=== PATIENT | female | born 1960 | race African-American/Black ===

== ENCOUNTER 2016-09-04 17:44 | Observation (INO) | payer SELFPAY ==
[~2016-09-04] VITALS: Ht 175.3 cm; Wt 95.0 kg
[2016-09-04 17:46] VITALS: BP 141/85; PULSE 88; RESP 20; TEMP 99.1; O2SAT 100
--- NOTE | 2016-09-04 19:22 | PD ---
HPI Chief Complaint: Cardiac Complaint Time Seen by Provider: 19:10 Travel History International Travel<30 days: No Contact w/Intl Traveler<30days: No Traveled to known affect area: No History of Present Illness HPI 56 year old female presents for evaluation of chest pain. She reports that yesterday evening at 11 PM she developed a substernal chest pressure which lasted for 20 minutes. She reports that it felt like a "elephant sitting on the chest." Today she has had intermittent chest discomfort and her daughter urged her to come here for evaluation. She is currently not having any chest pain. She does report that she had some "numbness" in her legs as well as some right arm discomfort when she woke up this morning which resolved. She denies any shortness of breath, nausea or vomiting, cough or congestion, fevers or chills, abdominal pain, calf Swelling. No personal history of coronary artery disease. She does report significant family historyshe reports her mother had an WY in her 30s and her father had an WY in his 40s. She denies any known history of hypertension, hyperlipidemia or IVs but she admits that she has not followed up with a primary care physician in approximately 25 years. She has never had this type of pain before. No other complaints. [facility] Past Medical History Medical History: Denies Significant Hx Tubal Ligation: Yes Social History Alcohol Use: Yes (VERY RARE ) Tobacco Use: No Substance Use: No Allergies-Medications (Allergen,Severity, Reaction): Coded Allergies: No Known Allergies (Unverified , 09/04/16) Reported Meds & Prescriptions Reported Meds & Active Scripts Active No Active Prescriptions or Reported Medications Review of Systems Except as stated in HPI: all other systems reviewed are Neg Physical Exam Narrative GENERAL: Well-developed well-nourished female in no acute distress SKIN: Warm and dry. HEAD: Atraumatic. Normocephalic. EYES: Pupils equal and round. No scleral icterus. No injection or drainage. ENT: No nasal bleeding or discharge. Mucous membranes pink and moist. NECK: Trachea midline. No JVD. CARDIOVASCULAR: Regular rate and rhythm. No murmur appreciated. RESPIRATORY: No accessory muscle use. Clear to auscultation. Breath sounds equal bilaterally. GASTROINTESTINAL: Abdomen soft, non-tender, nondistended. Hepatic and splenic margins not palpable. MUSCULOSKELETAL: No obvious deformities. No clubbing. No cyanosis. No edema. NEUROLOGICAL: Awake and alert. No obvious cranial nerve deficits. Motor grossly within normal limits. Normal speech. PSYCHIATRIC: Appropriate mood and affect; insight and judgment normal. Data Data Last Documented VS Vital Signs Date Time Temp Pulse Resp B/P Pulse Ox O2 Delivery O2 Flow Rate FiO2 09/04/16 19:29 18 99 09/04/16 19:08 76 09/04/16 17:46 99.1 141/85 Room Air Orders Electrocardiogram (09/04/16 19:19) Basic Metabolic Panel (Bmp) (09/04/16 19:19) Ckmb (Isoenzyme) Profile (09/04/16 19:19) Complete Blood Count With Diff (09/04/16 19:19) Magnesium (Mg) (09/04/16 19:19) Prothrombin Time / Inr (Pt) (09/04/16 19:19) Act Partial Throm Time (Ptt) (09/04/16 19:19) Troponin I (09/04/16 19:19) Chest, Single Ap (09/04/16 19:19) Ecg Monitoring (09/04/16 19:19) Bilateral Bp Monitoring (09/04/16 19:19) Iv Access Insert/Monitor (09/04/16 19:19) Oximetry (09/04/16 19:19) Oxygen Administration (09/04/16 19:19) Aspirin Chew (Aspirin Chew) (09/04/16 19:30) Sodium Chloride 0.9% Flush (Ns Flush) (09/04/16 19:30) Potassium Chloride (Kcl) (09/04/16 20:15) CKMB (09/04/16 19:20) CKMB% (09/04/16 19:20) Admit Order (Ed Use Only) (09/04/16 20:23) Labs Laboratory Tests Test 09/04/16 19:20 White Blood Count 5.6 TH/MM3 Red Blood Count 4.03 MIL/MM3 Hemoglobin 10.9 GM/DL Hematocrit 33.8 % Mean Corpuscular Volume 83.9 FL Mean Corpuscular Hemoglobin 27.1 PG Mean Corpuscular Hemoglobin 32.3 % Concent Red Cell Distribution Width 14.9 % Platelet Count 231 TH/MM3 Mean Platelet Volume 9.1 FL Neutrophils (%) (Auto) 52.9 % Lymphocytes (%) (Auto) 38.0 % Monocytes (%) (Auto) 5.7 % Eosinophils (%) (Auto) 2.9 % Basophils (%) (Auto) 0.5 % Neutrophils # (Auto) 2.9 TH/MM3 Lymphocytes # (Auto) 2.1 TH/MM3 Monocytes # (Auto) 0.3 TH/MM3 Eosinophils # (Auto) 0.2 TH/MM3 Basophils # (Auto) 0.0 TH/MM3 CBC Comment DIFF FINAL Differential Comment Prothrombin Time 10.6 SEC Prothromb Time International 1.0 RATIO Ratio Activated Partial 31.4 SEC Thromboplast Time Sodium Level 142 MEQ/L Potassium Level 3.4 MEQ/L Chloride Level 108 MEQ/L Carbon Dioxide Level 29.5 MEQ/L Anion Gap 5 MEQ/L Blood Urea Nitrogen 13 MG/DL Creatinine 0.92 MG/DL Estimat Glomerular Filtration 63 ML/MIN Rate Random Glucose 137 MG/DL Calcium Level 9.1 MG/DL Magnesium Level 1.8 MG/DL Total Creatine Kinase 254 U/L Creatine Kinase MB 3.2 NG/ML Creatine Kinase MB % 1.3 % Troponin I 0.02 NG/ML [facility] Medical Decision Making Medical Screen Exam Complete: Yes Emergency Medical Condition: Yes Medical Record Reviewed: Yes Interpretation(s) EKG reveals flipped T waves in V3 and V4, normal sinus rhythm Differential Diagnosis Angina, acute coronary syndrome, anxiety, pneumothorax, pericarditis, myocarditis, aortic dissection, pulmonary embolus, costochondritis Narrative Course This is a 56-year-old female with family history of coronary artery disease who presents after having 20 episodes of substernal chest pressure yesterday and intermittent chest pressure today. Plan is for 12-lead EKG, ECG monitor with pulse oximetry, basic lab work, chest x-ray. She will be given a full dose aspirin. Laboratory and imaging studies been reviewed. Her potassium is 3.4, she is given oral potassium chloride. Hemoglobin 10.9, total CK is 254 with normal MB percentage and a negative troponin. She does have significant family history of coronary artery disease as well as likely undiagnosed risk factors. Therefore the plan would be to admit the patient and the chest pain center for rule out purposes, serial enzymes. She is agreeable. Diagnosis Primary Impression: Chest pain Qualified Code: R07.9 - Chest pain, unspecified type Admitting Information Admitting Physician Requests: Observation Scripts No Active Prescriptions or Reported Meds Wendi,Iron P. PA Sep 04, 2016 19:21
[2016-09-04 19:29] VITALS: RESP 18; O2SAT 99
[2016-09-04] MEDS ORDERED: ASPIRIN 81 MG CHEW TAB PO ONE (19:30)
[2016-09-04] MEDS ORDERED: SODIUM CHLORIDE 0.9% FLUSH 10 ML FLUSH IVF PRN (19:30)
[2016-09-04 19:42] LABS: AUTOMATED NEUTROPHIL # 2.9 TH/MM3 (1.8-7.7); BASOPHIL % 0.5 % (0.0-2.0); EOSINOPHIL # 0.2 TH/MM3 (0-0.4); EOSINOPHIL % 2.9 % (0.0-4.0); HEMATOCRIT 33.8 % (35.0-46.0); HEMO FLAGS DIFF FINAL; LYMPHOCYTE # 2.1 TH/MM3 (1.0-4.8); MEAN CELL VOLUME 83.9 FL (80.0-100.0); MEAN CORPUSCULAR HEMOGLOBIN 27.1 PG (27.0-34.0); MEAN CORPUSCULAR HGB CONC 32.3 % (32.0-36.0); MONO % 5.7 % (0.0-8.0); NEUT % 52.9 % (16.0-70.0); PLATELET COUNT 231 TH/MM3 (150-450); RED BLOOD COUNT 4.03 MIL/MM3 (4.00-5.30); RED CELL DISTRIBUTION WIDTH 14.9 % (11.6-17.2); WHITE BLOOD COUNT 5.6 TH/MM3 (4.0-11.0)
[2016-09-04 19:53] LABS: APTT (PATIENT) 31.4 SEC (24.3-30.1); PROTHROMBIN TIME - PATIENT 10.6 SEC (9.8-11.6)
[2016-09-04 20:02] LABS: BICARBONATE 29.5 MEQ/L (21.0-32.0); MAGNESIUM 1.8 MG/DL (1.5-2.5); POTASSIUM 3.4 MEQ/L (3.5-5.1)
--- NOTE | 2016-09-04 20:12 | RADRPT ---
EXAM DATE/TIME: 09/04/2016 19:21 [place] COMPARISON: No previous studies available for comparison. INDICATIONS : Right arm numbness, chest pain. MEDICAL HISTORY : None. SURGICAL HISTORY : None. ENCOUNTER: Initial ACUITY: 2 days PAIN SCORE: 5/10 LOCATION: chest FINDINGS: A single view of the chest demonstrates the lungs to be symmetrically aerated without evidence of mas s, infiltrate or effusion. The cardiomediastinal contours are unremarkable. Osseous structures are intact. CONCLUSION: 1. No active disease. Minimal dextroscoliosis. Bethel Carlos MD on September 04, 2016 at 20:10 Board Certified Radiologist. This report was verified electronically.
[2016-09-04] MEDS ORDERED: POTASSIUM CHLORIDE 20 MEQ CONTROLLED RELEASE TAB PO ONE (20:15)
[2016-09-04 20:18] LABS: CKMB 3.2 NG/ML (0.5-3.6)
[2016-09-04] MEDS ORDERED: SODIUM CHLORIDE 0.9% FLUSH 10 ML FLUSH IV FLUSH PRN (20:30)
--- NOTE | 2016-09-04 20:32 | PD ---
Physical Exam Date Seen by Provider: Sep 04, 2016 Time Seen by Provider: 20:22 Data Data Last Documented VS Vital Signs Date Time Temp Pulse Resp B/P Pulse Ox O2 Delivery O2 Flow Rate FiO2 09/04/16 19:29 18 99 09/04/16 19:08 76 09/04/16 17:46 99.1 141/85 Room Air Orders Electrocardiogram (09/04/16 19:19) Basic Metabolic Panel (Bmp) (09/04/16 19:19) Ckmb (Isoenzyme) Profile (09/04/16 19:19) Complete Blood Count With Diff (09/04/16 19:19) Magnesium (Mg) (09/04/16 19:19) Prothrombin Time / Inr (Pt) (09/04/16 19:19) Act Partial Throm Time (Ptt) (09/04/16 19:19) Troponin I (09/04/16 19:19) Chest, Single Ap (09/04/16 19:19) Ecg Monitoring (09/04/16 19:19) Bilateral Bp Monitoring (09/04/16 19:19) Iv Access Insert/Monitor (09/04/16 19:19) Oximetry (09/04/16 19:19) Oxygen Administration (09/04/16 19:19) Aspirin Chew (Aspirin Chew) (09/04/16 19:30) Sodium Chloride 0.9% Flush (Ns Flush) (09/04/16 19:30) Potassium Chloride (Kcl) (09/04/16 20:15) CKMB (09/04/16 19:20) CKMB% (09/04/16 19:20) Labs Laboratory Tests Test 09/04/16 19:20 White Blood Count 5.6 TH/MM3 Red Blood Count 4.03 MIL/MM3 Hemoglobin 10.9 GM/DL Hematocrit 33.8 % Mean Corpuscular Volume 83.9 FL Mean Corpuscular Hemoglobin 27.1 PG Mean Corpuscular Hemoglobin 32.3 % Concent Red Cell Distribution Width 14.9 % Platelet Count 231 TH/MM3 Mean Platelet Volume 9.1 FL Neutrophils (%) (Auto) 52.9 % Lymphocytes (%) (Auto) 38.0 % Monocytes (%) (Auto) 5.7 % Eosinophils (%) (Auto) 2.9 % Basophils (%) (Auto) 0.5 % Neutrophils # (Auto) 2.9 TH/MM3 Lymphocytes # (Auto) 2.1 TH/MM3 Monocytes # (Auto) 0.3 TH/MM3 Eosinophils # (Auto) 0.2 TH/MM3 Basophils # (Auto) 0.0 TH/MM3 CBC Comment DIFF FINAL Differential Comment Prothrombin Time 10.6 SEC Prothromb Time International 1.0 RATIO Ratio Activated Partial 31.4 SEC Thromboplast Time Sodium Level 142 MEQ/L Potassium Level 3.4 MEQ/L Chloride Level 108 MEQ/L Carbon Dioxide Level 29.5 MEQ/L Anion Gap 5 MEQ/L Blood Urea Nitrogen 13 MG/DL Creatinine 0.92 MG/DL Estimat Glomerular Filtration 63 ML/MIN Rate Random Glucose 137 MG/DL Calcium Level 9.1 MG/DL Magnesium Level 1.8 MG/DL Total Creatine Kinase 254 U/L Creatine Kinase MB 3.2 NG/ML Creatine Kinase MB % 1.3 % Troponin I 0.02 NG/ML MDM Medical Record Reviewed: Yes Supervised Visit with KRISSY: Yes Interpretation(s) EKG shows normal sinus rhythm nonspecific ST changes Chest x-ray shows no acute disease Differential Diagnosis Differential diagnosis acute coronary syndrome atypical chest pain musculoskeletal chest pain Narrative Course This is a 56-year-old female with no prior significant past medical history septal positive family history of cardiac disease and both mom and dad who are currently . States after she was eating she developed severe pressure- like pain that she likened to a elephant sitting on her chest. She noted associated difficulty breathing and mild lightheadedness but denies nausea vomiting or sweating. Since that could be a aspirin and she noticed some improvement in symptoms she did not seek medical care last night. When the urgent family patient presented for evaluation today. Patient is currently pain -free. EKG shows borderline LVH and T-wave inversion anteriorly the systole in lead V3 troponin 1 negative chest x-ray shows no acute disease. She'll given aspirin in the emergency department. [place] to admit patient to the Chest Pain center for serial cardiac enzymes and stress testing. Diagnosis Primary Impression: Chest pain Qualified Code: R07.9 - Chest pain, unspecified type Additional Impression: suspect acute coronary syndrome Admitting Information Admitting Physician Requests: Observation Scripts No Active Prescriptions or Reported Meds Hanh Corey MD Sep 04, 2016 20:32
[2016-09-04 22:36] VITALS: BP 144/97; PULSE 73; RESP 16; TEMP 97.8; O2SAT 97
[2016-09-04] MEDS: SODIUM CHLORIDE 0.9% FLUSH 10 ML FLUSH IV FLUSH SCH (22:50)
[2016-09-04 23:43] LABS: CKMB 2.8 NG/ML (0.5-3.6)
[2016-09-05] VITALS (10 sets, daily range): BP systolic 118–145; BP diastolic 73–90; PULSE 54–75; RESP 16–20; TEMP 97.6–97.9; O2SAT 94–98
[2016-09-05 02:13] LABS: CREATINE KINASE 192 U/L (26-192)
[2016-09-05 02:25] LABS: CKMB 2.2 NG/ML (0.5-3.6)
[2016-09-05] MEDS: SODIUM CHLORIDE 0.9% FLUSH 10 ML FLUSH IV FLUSH SCH (09:00)
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
[2016-09-05] MEDS ORDERED: ACETAMINOPHEN 500 MG CPLT PO PRN (15:15)
[2016-09-05] MEDS ORDERED: ONDANSETRON HCL 4 MG/2 ML VIAL IV PRN (15:15)
[2016-09-05] MEDS ORDERED: NITROGLYCERIN 0.4 MG SL 25 TABS/BTL SL PRN (15:15)
[2016-09-05] MEDS ORDERED: OMEP20TA PO (17:51)
--- NOTE | 2016-09-05 17:52 | HHI.DCPOC ---
Discharge Care Plan Diagnosis: (1) Atypical chest pain (2) GERD (gastroesophageal reflux disease) Goals to Promote Your Health * To prevent worsening of your condition and complications * To maintain your health at the optimal level Directions to Meet Your Goals Take your medications as prescribed Follow your dietary instruction Follow activity as directed Keep your appointments as scheduled Take your immunizations and boosters as scheduled If your symptoms worsen call your PCP, if no PCP go to Urgent Care Center or Emergency Room Smoking is Dangerous to Your Health. Avoid second hand smoke Call the 24-hour hour crisis hotline for domestic abuse at Tamara LeeP Sep 05, 2016 17:52
[2016-09-06] MEDS ORDERED: ASPIRIN 325 MG TAB PO SCH (09:00)
--- NOTE | 2016-09-06 13:10 | EKG ---
Date Performed: 09/05/2016 Time Performed: 01:19:04 PTAGE: 56 years EKG: Sinus rhythm NONSPECIFIC T-WAVE ABNORMALITY BORDERLINE ECG PREVIOUS TRACING : 09/04/2016 21.27 Since previous tracing, no significant change noted DOCTOR: Tres Norris Interpretating Date/Time 09/06/2016 13:08:53
--- NOTE | 2016-09-06 13:11 | EKG ---
Date Performed: 09/04/2016 Time Performed: 21:27:52 PTAGE: 56 years EKG: Sinus rhythm NONSPECIFIC T-WAVE ABNORMALITY BORDERLINE ECG PREVIOUS TRACING : 09/04/2016 17.53 Since previous tracing, no significant change noted DOCTOR: Tres Norris Interpretating Date/Time 09/06/2016 13:09:51
--- NOTE | 2016-09-06 13:12 | EKG ---
Date Performed: 09/04/2016 Time Performed: 17:53:13 PTAGE: 56 years EKG: Sinus rhythm NONSPECIFIC T-WAVE ABNORMALITY BORDERLINE ECG NO PREVIOUS TRACING DOCTOR: Tres Norris Interpretating Date/Time 09/06/2016 13:11:01
--- NOTE | 2016-09-06 13:31 | TR ---
Date Performed: 09/05/2016 Time Performed: 17:00:54 DOCTOR: Tres Norris DRUG LIST: CLINICAL HISTORY: CHEST PAIN REASON FOR TEST: Chest pain REASON FOR ENDING: OBSERVATION: CONCLUSION: Alexandru protocol completed. Stopped sec to reaching target heart rate and leg fatigue. Maximum KJ=106 Target HR Achieved=88.0% Maximum HR=640/88 Total Exercise Time=4:01. No reprod chest pain. No st t segment changes to sugg ischemia. Good exercise tolerance. Normal bp response. Freq PVC during peak and during recovery. Recovery quick and unremarkable. COMMENTS: Patient exercised using the Alexandru protocol. No electrocardiographic changes were seen to suggest ischemia. Hemodynamic response to exercise was normal. No significant arrhythmia was prese nt.
== END 2016-09-05 19:05 | disposition home or self-care (01) ==
LOC: NEPC 17:44 → NEDA 20:24 → NEPFCDU 21:21
PROVIDERS: ADMIT Internal Medicine Cardiovascular Disease; ATTEND Internal Medicine Cardiovascular Disease
DX: R07.89 Other chest pain (principal); K21.9 Gastro-esophageal reflux disease without esophagitis; K22.4 Dyskinesia of esophagus
CPT/HCPCS: 71010; 80048; 82550; 82552; 83735; 84484; 85025; 85610; 85730; 93005; 93017; 99285; G0378